=== PATIENT | female | born 1960 | race Caucasian/White ===

== ENCOUNTER 2017-03-20 14:44 | Inpatient (IN) | payer OTHER ==
[~2017-03-20] VITALS: Ht 157.5 cm; Wt 74.4 kg
[2017-03-20 17:39] VITALS: Ht 157.5 cm; Wt 74.4 kg
[2017-03-20 18:22] VITALS: BP 129/73; PULSE 74; RESP 18
--- NOTE | 2017-03-20 19:47 | HP ---
Date/Time of Note Date/Time of Note DATE: 03/20/17 TIME: 19:40 Assessment/Plan VTE Prophylaxis VTE Prophylaxis Intervention: SCD's Lines/Catheters IV Catheter Type (from Nrsg): Saline Lock Assessment/Plan Assessment/Plan 56 yo F with no known pmhx presents with 2 days of L back pain radiating to L leg, clinical history consistent with sciatica. Given no evidence of spinal cord compromise (no c/o bowel or bladder control), no risk factors for epidural abscess (no fever, no h/o IVDU), no h/o malignancy no compelling indication for more advanced imaging at this time. PLAN pain control with NSAIDs/APAP/opiates PT as tolerated if pain does not improve by AM or worsens, consider MRI general diet DVT prophx with LMWH and SCDs HPI/ROS Admit Date/Time Admit Date/Time Mar 20, 2017 at 17:22 Hx of Present Illness 56 yo F with no known pmhx transferred from OSH ER for insurance reasons. Pt had presented to [facility] ER this afternoon with L sided back pain with radiation down her L left leg. Pt states pain began 2 days ago while pt was standing in her kitchen cooking. Over this interval pain has consistently worsened which is what led pt to come to the ED this afternoon. Despite several doses of morphine she was unable to WB thus she is being admitted for further management. Pt denies any fever, chills, weight changes, compromise of bowel or bladder control. +tingling in LLE PMH/Family/Social Past Medical History PMHx: none PSHx: unk procedure to R arm Meds none all none ROS 10p ROS neg except as per HPI Fam Hx: non contributory Social History Smoking Status: Never smoker Exam/Review of Systems Vital Signs Vitals Vital Signs Date Time Temp Pulse Resp B/P Pulse Ox O2 Delivery O2 Flow Rate FiO2 03/20/17 18:22 98.2 74 18 129/73 96 Room Air Exam Exam middle aged female laying in bed, pleasant EOMI mmm no mrg lungs clear abd soft no le edema no rashes 4/5 strength L sided ankle flexion/extension. Unable to assess proximal strength (knee/hip) 2/2 pain with flexing L hip 5/5 strength R ankle decreased sensation to light touch on LLE from toes to knee Procedures Procedures LSpine XR done at OSH with LACHOD, no fracture or mass TADEO AMAYA MD Mar 20, 2017 19:46
[2017-03-20] MEDS ORDERED: MAGNESIUM HYDROXIDE 30ML CUP PO PRN (20:00)
[2017-03-20] MEDS ORDERED: DOCUSATE SODIUM 100 MG CAP PO PRN (20:00)
[2017-03-20] MEDS ORDERED: HYDROCODONE/APAP (5/325) TAB PO PRN (20:00)
[2017-03-20] MEDS ORDERED: KETOROLAC 30 MG INJ IV PRN (20:00)
[2017-03-20] MEDS ORDERED: NACL 0.9% 3 ML SYG IV SCH (20:00)
[2017-03-20] MEDS ORDERED: ONDANSETRON 4 MG INJ IV PRN (20:00)
[2017-03-20] MEDS ORDERED: ONDANSETRON 4 MG TAB PO PRN (20:00)
[2017-03-20] MEDS ORDERED: ACETAMINOPHEN 325 MG TAB PO PRN (20:00)
[2017-03-20] MEDS ORDERED: NA PHOSPHATE/BIPHOS 133 ML ENEMA PR PRN (20:00)
[2017-03-20] MEDS ORDERED: BISACODYL 10 MG SUPP PR PRN (20:00)
[2017-03-20] MEDS ORDERED: BISACODYL (EC) 5 MG TAB PO PRN (20:00)
[2017-03-20] MEDS: morphine 2 MG INJ IV PRN (21:11)
[2017-03-20 22:07] VITALS: BP 102/56; RESP 16
[2017-03-21] MEDS: morphine 2 MG INJ IV PRN ×3 (03:06→13:18)
[2017-03-21 07:45] VITALS: BP 111/58; RESP 18
[2017-03-21] MEDS: ENOXAPARIN 40 MG/0.4 ML SYG SC SCH (10:17)
--- NOTE | 2017-03-21 15:30 | PN ---
Date/Time of Note Date/Time of Note DATE: 03/21/17 TIME: 15:28 Assessment/Plan VTE Prophylaxis VTE Prophylaxis Intervention: SCD's Lines/Catheters IV Catheter Type (from Nrsg): Saline Lock Assessment/Plan Assessment/Plan 1. acute intractable back pain radiating to her Buttocks 2. Rule out spinal canal stenosis Plan: MRI LS spine pain control PT evaluation and treatment SCD for DVT prophylaxis Subjective 24 Hr Interval Summary Free Text/Dictation c/o severe back pain, BP stable Exam/Review of Systems Vital Signs Vitals Vital Signs Date Time Temp Pulse Resp B/P Pulse Ox O2 Delivery O2 Flow Rate FiO2 03/21/17 07:45 98.6 65 18 111/58 96 03/20/17 18:22 Room Air Intake and Output 03/20/17 03/20/17 03/21/17 15:00 23:00 07:00 Intake Total 200 ml Balance 200 ml Exam middle aged female laying in bed, pleasant EOMI mmm no mrg lungs clear abd soft no le edema no rashes 4/5 strength L sided ankle flexion/extension. Unable to assess proximal strength (knee/hip) 2/2 pain with flexing L hip 5/5 strength R ankle decreased sensation to light touch on LLE from toes to knee Medications Medications Current Medications Ondansetron HCl (Zofran Tab) 4 mg Q6H PRN PO NAUSEA AND/OR VOMITING; Start 03/20 at 20:00 Acetaminophen (Tylenol Tab) 650 mg Q6H PRN PO PAIN LEVEL 1-3 OR FEVER; Start at 20:00 Morphine Sulfate (morphine) 2 mg Q4H PRN IV SEVERE PAIN LEVEL 7-10 Last administered on 03/21/17t 13:18; Admin Dose 2 MG; Start 03/20/17 at 20:00 Docusate Sodium (Colace) 100 mg Q12H PRN PO CONSTIPATION; Start 03/20/17 at 20: 00 Magnesium Hydroxide (Milk Of Mag) 30 ml DAILY PRN PO CONSTIPATION; Start at 20:00 Bisacodyl (Dulcolax) 5 mg DAILY PRN PO CONSTIPATION; Start 03/20/17 at 20:00 Bisacodyl (Dulcolax Supp) 10 mg DAILY PRN [place] CONSTIPATION; Start 03/20/17 at 20: 00 Sodium Biphosphate/ Sodium Phosphate (Fleet Enema) 133 ml DAILY PRN [place] CONSTIPATION; Start 03/20/17 at 20:00 Enoxaparin Sodium (Lovenox) 40 mg DAILY SC Last administered on 03/21/17t 10:17 ; Admin Dose 40 MG; Start 03/21/17 at 09:00 Ketorolac Tromethamine (Toradol) 30 mg Q6H PRN IV PAIN; Start 03/20/17 at 21:30 ; Stop 03/23/17 at 21:29 Acetaminophen/ Hydrocodone Bitart ([place] (5/325)) 1 tab Q4H PRN PO MODERATE PAIN LEVEL 4-6; Start 03/21/17 at 18:00 WOJCIECH CABA MD Mar 21, 2017 15:30
[2017-03-21] MEDS: HYDROCODONE/APAP (5/325) TAB PO PRN ×2 (17:26→21:49)
[2017-03-21 21:23] VITALS: BP 125/70; RESP 20
[2017-03-22] MEDS: HYDROCODONE/APAP (5/325) TAB PO PRN ×2 (01:50→19:51)
[2017-03-22] MEDS: KETOROLAC 30 MG INJ IV PRN (05:42)
[2017-03-22 07:53] VITALS: BP 129/59; RESP 16
[2017-03-22] MEDS: morphine 2 MG INJ IV PRN ×3 (09:41→23:46)
[2017-03-22] MEDS: ENOXAPARIN 40 MG/0.4 ML SYG SC SCH (09:54)
--- NOTE | 2017-03-22 15:06 | PN ---
Date/Time of Note Date/Time of Note DATE: 03/22/17 TIME: 15:03 Assessment/Plan VTE Prophylaxis VTE Prophylaxis Intervention: SCD's Lines/Catheters IV Catheter Type (from Nrsg): Saline Lock Assessment/Plan Assessment/Plan 1. acute intractable back pain radiating to her Buttocks 2. Rule out spinal canal stenosis vs acute spina findings Plan: MRI LS spine just done, awaiting for result pain control PT evaluation and treatment SCD for DVT prophylaxis Subjective 24 Hr Interval Summary Free Text/Dictation c/o intractable back pain, plan for MRI today Exam/Review of Systems Vital Signs Vitals Vital Signs Date Time Temp Pulse Resp B/P Pulse Ox O2 Delivery O2 Flow Rate FiO2 03/22/17 07:53 97.3 60 16 129/59 98 03/20/17 18:22 Room Air Intake and Output 03/21/17 03/21/17 03/22/17 15:00 23:00 07:00 Intake Total 960 ml 720 ml Balance 960 ml 720 ml Exam Constitutional: alert Head: normocephalic Neck: supple Respiratory: clear to auscultation Cardiovascular: regular rate and rhythm Gastrointestinal: soft Extremities: normal pulses Neurological: SOFTWARE DEVELOPMENT ENGINEER II-XII intact Medications Medications Current Medications Ondansetron HCl (Zofran Tab) 4 mg Q6H PRN PO NAUSEA AND/OR VOMITING; Start 03/20 at 20:00 Acetaminophen (Tylenol Tab) 650 mg Q6H PRN PO PAIN LEVEL 1-3 OR FEVER; Start at 20:00 Morphine Sulfate (morphine) 2 mg Q4H PRN IV SEVERE PAIN LEVEL 7-10 Last administered on 03/22/17t 09:41; Admin Dose 2 MG; Start 03/20/17 at 20:00 Docusate Sodium (Colace) 100 mg Q12H PRN PO CONSTIPATION; Start 03/20/17 at 20: 00 Magnesium Hydroxide (Milk Of Mag) 30 ml DAILY PRN PO CONSTIPATION; Start at 20:00 Bisacodyl (Dulcolax) 5 mg DAILY PRN PO CONSTIPATION; Start 03/20/17 at 20:00 Bisacodyl (Dulcolax Supp) 10 mg DAILY PRN [place] CONSTIPATION; Start 03/20/17 at 20: 00 Sodium Biphosphate/ Sodium Phosphate (Fleet Enema) 133 ml DAILY PRN [place] CONSTIPATION; Start 03/20/17 at 20:00 Enoxaparin Sodium (Lovenox) 40 mg DAILY SC Last administered on 03/22/17 09:54 ; Admin Dose 40 MG; Start 03/21/17 at 09:00 Ketorolac Tromethamine (Toradol) 30 mg Q6H PRN IV PAIN Last administered on 03/22 05:42; Admin Dose 30 MG; Start 03/20/17 at 21:30; Stop 03/23/17 at 21:29 Acetaminophen/ Hydrocodone Bitart ([place] (5/325)) 1 tab Q4H PRN PO MODERATE PAIN LEVEL 4-6 Last administered on 03/22/17 01:50; Admin Dose 1 TAB; Start 03/21 at 18:00 WOJCIECH CABA MD Mar 22, 2017 15:06
--- NOTE | 2017-03-22 16:16 | RADRPT ---
PROCEDURE: MRI lumbar spine without contrast CLINICAL INDICATION: Back pain TECHNIQUE: An high-resolution MRI of the lumbar spine was performed utilizing the following sequen parker: Sagittal and axial T1 weighted, sagittal and axial T2 weighted, and sagittal fat suppressed T2 . COMPARISON: None FINDINGS: No acute vertebral compression fracture. No evidence of a diffuse marrow replacing process. The conus medullaris terminates at L1-2. T12 - L1: The disk is preserved in height. There is no significant disk protrusion, spinal canal or foraminal stenosis. L1 - L2: The disk is preserved in height. There is no significant disk protrusion, spinal canal or foraminal stenosis. L2 - L3: The disk is preserved in height. There is no significant disk protrusion, spinal canal or foraminal stenosis. L3 - L4: The disk is preserved in height. There is no significant disk protrusion, spinal canal or foraminal stenosis. L4 - L5: The disk is preserved in height. Left foraminal to far left lateral disk annular fissure . No spinal canal or foraminal narrowing. L5 - S1: Grade 1 retrolisthesis. Mild to moderate disk height loss. Circumferential disk bulge wit h central 2 mm disk protrusion and disk annular fissure. No spinal canal stenosis. Mild to moderat e right and mild left foraminal narrowing. Paraspinal soft tissues are unremarkable. IMPRESSION: L5 - S1: Grade 1 retrolisthesis with moderate discogenic disease. Circumferential disk bulge with central 2 mm disk protrusion and disk annular fissure. Mild to moderate right and mild left forami nal narrowing. L4 - L5: Left foraminal to far left lateral disk annular fissure. No significant lumbar spinal canal stenosis. RPTAT: AA .Preston Smith MD, MD Date Time Electronically viewed and signed by .Preston Smith MD, on 03/22/2017 16:16 .T/
[2017-03-22 23:06] VITALS: BP 133/77; RESP 20
[2017-03-23] MEDS: HYDROCODONE/APAP (5/325) TAB PO PRN ×2 (03:06→10:27)
[2017-03-23 05:58] LABS: ADD SCAN DIFF NO
[2017-03-23 06:06] LABS: BASOPHILS % 0.6 % (0.0-2.0); EOSINOPHILS # 0.2 10^3/ul (0.0-0.5); EOSINOPHILS % 2.9 % (0.0-7.0); HEMATOCRIT 40.1 % (37.0-47.0); HEMOGLOBIN 13.2 g/dl (12.0-16.0); LYMPHOCYTES # 1.2 10^3/ul (0.8-2.9); LYMPHOCYTES % 23.2 % (15.0-51.0); MEAN CORPUSCULAR HEMOGLOBIN 28.6 pg (29.0-33.0); MEAN CORPUSCULAR HGB CONC 32.9 g/dl (32.0-37.0); MEAN CORPUSCULAR VOLUME 86.8 fl (82.0-101.0); MEAN PLATELET VOLUME 10.9 fl (7.4-10.4); MONOCYTE # 0.7 10^3/ul (0.3-0.9); MONOCYTES % 13.2 % (0.0-11.0); NEUTROPHIL # 3.1 10^3/ul (1.6-7.5); NEUTROPHILS % 59.3 % (39.0-77.0); PLATELET COUNT 182 10^3/UL (140-415); RED BLOOD COUNT 4.62 10^6/ul (4.20-5.40); RED CELL DISTRIBUTION WIDTH 12.2 % (11.5-14.5); WHITE BLOOD COUNT 5.2 10^3/ul (4.8-10.8)
[2017-03-23 06:37] LABS: INR 1.08; PT RATIO 1.1
[2017-03-23 06:39] LABS: PARTIAL THROMBOPLASTIN TIME 27.3 Sec (25.0-35.0)
[2017-03-23 06:40] LABS: CALCIUM 9.4 mg/dl (8.4-10.2); CREATININE 0.65 mg/dl (0.44-1.00); POTASSIUM 4.4 mmol/L (3.5-5.1)
[2017-03-23 08:10] VITALS: BP 118/76; RESP 18
[2017-03-23] MEDS: morphine 2 MG INJ IV PRN (08:18)
[2017-03-23] MEDS: ENOXAPARIN 40 MG/0.4 ML SYG SC SCH (08:18)
[2017-03-23] MEDS: KETOROLAC 30 MG INJ IV PRN (10:59)
[2017-03-23] MEDS ORDERED: METHYLPREDNISOLONE (MEDROL) DOSE PACK PO SCH (11:30)
--- NOTE | 2017-03-23 11:38 | PN ---
Date/Time of Note Date/Time of Note DATE: 03/23/17 TIME: 11:35 Assessment/Plan VTE Prophylaxis VTE Prophylaxis Intervention: LMWH Lines/Catheters IV Catheter Type (from [facility]): Saline Lock Urinary Cath still in place: No Assessment/Plan Chief Complaint/Hosp Course S-moderate burning poking pain left ankle/calf/thigh. Back? No fever chills weight loss or general health decline or loss of sensation. In terms of her rash, and denies any bug bites or activity in her garden/poison sheila exposure. O-vss PE No pallor Regular Clear Bowel sounds positive, nontender, nondistended, no RIG Reflexes symmetrical bilaterally SLR appears greater than 45 bilaterally -Slight papular rash left ankle thigh but no weeping or vesicles today A/P 1. Left leg pain. Sciatica radiculopathy. Stable continue Medrol nonsteroidals PT. Outpatient neurosurgery follow-up. 2. Left rash: Consider shingles? 3. Deconditioning may discharge home later. Problems: Exam/Review of Systems Vital Signs Vitals Vital Signs Date Time Temp Pulse Resp B/P Pulse Ox O2 Delivery O2 Flow Rate FiO2 03/23/17 08:10 98.2 69 18 118/76 97 03/20/17 18:22 Room Air Intake and Output 03/22/17 03/22/17 03/23/17 15:00 23:00 07:00 Intake Total 1130 ml 400 ml Balance 1130 ml 400 ml Results Result Diagram: 03/23/17 0515 03/23/17 0515 Results 24 hrs Laboratory Tests Test 03/23/17 05:15 White Blood Count 5.2 Red Blood Count 4.62 Hemoglobin 13.2 Hematocrit 40.1 Mean Corpuscular Volume 86.8 Mean Corpuscular Hemoglobin 28.6 L Mean Corpuscular Hemoglobin Concent 32.9 Red Cell Distribution Width 12.2 Platelet Count 182 Mean Platelet Volume 10.9 H Neutrophils % 59.3 Lymphocytes % 23.2 Monocytes % 13.2 H Eosinophils % 2.9 Basophils % 0.6 Nucleated Red Blood Cells % 0.0 Neutrophils # 3.1 Lymphocytes # 1.2 Monocytes # 0.7 Eosinophils # 0.2 Basophils # 0.0 Nucleated Red Blood Cells # 0.0 Prothrombin Time 14.0 Prothrombin Time Ratio 1.1 INR International Normalized Ratio 1.08 Activated Partial Thromboplast Time 27.3 Sodium Level 142 Potassium Level 4.4 Chloride Level 104 Carbon Dioxide Level 29 Anion Gap 13 Blood Urea Nitrogen 14 Creatinine 0.65 Glucose Level 91 Calcium Level 9.4 Medications Medications Current Medications Ondansetron HCl (Zofran Tab) 4 mg Q6H PRN PO NAUSEA AND/OR VOMITING; Start 03/20 at 20:00 Acetaminophen (Tylenol Tab) 650 mg Q6H PRN PO PAIN LEVEL 1-3 OR FEVER; Start at 20:00 Morphine Sulfate (morphine) 2 mg Q4H PRN IV SEVERE PAIN LEVEL 7-10 Last administered on 03/23/17 08:18; Admin Dose 2 MG; Start 03/20/17 at 20:00 Docusate Sodium (Colace) 100 mg Q12H PRN PO CONSTIPATION; Start 03/20/17 at 20: 00 Magnesium Hydroxide (Milk Of Mag) 30 ml DAILY PRN PO CONSTIPATION; Start at 20:00 Bisacodyl (Dulcolax) 5 mg DAILY PRN PO CONSTIPATION; Start 03/20/17 at 20:00 Bisacodyl (Dulcolax Supp) 10 mg DAILY PRN [place] CONSTIPATION; Start 03/20/17 at 20: 00 Sodium Biphosphate/ Sodium Phosphate (Fleet Enema) 133 ml DAILY PRN [place] CONSTIPATION; Start 03/20/17 at 20:00 Enoxaparin Sodium (Lovenox) 40 mg DAILY SC Last administered on 03/23/17 08:18 ; Admin Dose 40 MG; Start 03/21/17 at 09:00 Ketorolac Tromethamine (Toradol) 30 mg Q6H PRN IV PAIN Last administered on 03/23 10:59; Admin Dose 30 MG; Start 03/20/17 at 21:30; Stop 03/23/17 at 21:29 Acetaminophen/ Hydrocodone Bitart ([place] (5/325)) 1 tab Q4H PRN PO MODERATE PAIN LEVEL 4-6 Last administered on 03/23/17 10:27; Admin Dose 1 TAB; Start 03/21 at 18:00 GLORIA EVANS MD Mar 23, 2017 11:38
--- NOTE | 2017-03-23 11:58 | PDOCDIS ---
Discharge Instructions DIAGNOSIS Discharge Diagnosis: Lumbar radiculopathy CONDITION Patient Condition: Good HOME CARE INSTRUCTIONS: Special Diet: 1800 louis ACTIVITY: Activity Restrictions: Slowly Increase Activity Avoid heavy lifting FOLLOW UP/APPOINTMENTS Appointments Appointment primary 1 week. Referral to contracted neurosurgery, or Dr. Alo Figueroa for 1 month. Continue outpatient physical therapy. GLORIA EVANS MD Mar 23, 2017 11:58
[2017-03-23] MEDS ORDERED: METHYLPREDNISOLONE 4 MG TAB PO SCH (12:00)
[2017-03-23] MEDS ORDERED: ACET325T40 PO (12:01)
[2017-03-23] MEDS ORDERED: DOCU-216 PO (12:01)
[2017-03-23] MEDS ORDERED: IBUP800T25 PO (12:01)
[2017-03-23] MEDS ORDERED: Methylprednisolone Dose Pack PO (12:01)
--- NOTE | 2017-03-23 18:07 | CONS ---
DATE OF ADMISSION: 03/20/2017 DATE OF CONSULTATION: 03/23/2017 TYPE OF CONSULTATION: Infectious disease. REASON FOR CONSULTATION: Antibiotic management. HISTORY OF PRESENT ILLNESS: Joya Suarez is a 56-year-old female with no known pa st medical history who comes in with 2 days of low back pain radiating to the left leg consistent wi th sciatica. She had left-sided back pain with radiation down her left leg that began 2 days prior to admission while she was cooking. PAST MEDICAL HISTORY: Unremarkable. She now developed a few pustules on the left lower extremity a nd for that reason, I was called. PAST MEDICAL HISTORY: Operations as outlined. FAMILY HISTORY: Noncontributory. SOCIAL HISTORY: She does not smoke, drink or abuse drugs. ALLERGIES: NONE TO PENICILLIN, SULFA OR FOODS. MEDICATIONS: Per chart. REVIEW OF SYSTEMS: Noncontributory. PHYSICAL EXAMINATION: GENERAL: The patient is a well-developed, well-nourished middle-aged female who is lying in bed in no acute distress. VITAL SIGNS: Stable. She is afebrile. SKIN: Without generalized rash. HEENT: Within normal limits. NECK: Supple. LYMPH NODES: None palpable. CHEST: Decreased breath sounds at the bases. HEART: Without murmur or gallop. ABDOMEN: Soft, nontender, without organosplenomegaly or masses. EXTREMITIES: She has a few pustules on the medial aspect of her instep and also on the medial aspec t of her ankle. RECTAL AND GENITAL: Deferred. NEUROLOGIC: No focal neurological abnormalities. Her MRI scan did not show any significant finding s. She had mild to moderate left foraminal narrowing. LABORATORIES: Her white count was 5.21 today, H and H 13.2 and 40.1, platelet count 182,000. BUN a nd creatinine 14/0.65. She is on methylprednisolone, which seemed to have helped. The pustules may be MRSA or they may be contacts since she has been wearing constrictors to prevent deep vein thromb ophlebitis. I am going to get an MRSA for her nares. Recommend pHisoHex washes to the area. As no ulises, it is very limited and I do not want to start antibiotics at this point unless there is reason. PLAN: We get an MRI face screen. She can go home and followup with her physician. I will dictate my findings to Dr. Cristina and Dr. Regan Bingham. Dictated By: ZULMA POST MD, JD/SOHAM Conf#: [id number] DID#: [id number]
[2017-03-23] MEDS ORDERED: DOCUSATE SODIUM 100 MG CAP PO SCH (21:00)
[2017-03-23] MEDS ORDERED: IBUPROFEN 800 MG TAB PO PRN (21:00)
--- NOTE | 2017-03-24 07:24 | DS ---
DATE OF ADMISSION: 03/20/2017 DATE OF DISCHARGE: 03/23/2017 DATE OF : 1960 PRIMARY CARE PHYSICIAN: None. CLOTH SHEARER: Michael Post MD DIAGNOSES ON ADMISSION: Lumbar radiculopathy, sciatica. DIAGNOSES ON DISCHARGE: 1. Lumbar radiculopathy. 2. Sciatica. 3. Left lower extremity rash. HOSPITAL COURSE: A 56-year-old female who presents with burning left lower extremity pain at the an kle, calf and thigh. Sharp, may be burning in nature. No known aggravating or relieving factors. She denies any recent injury. Denies any falls, fevers, weight loss. No comorbidities. 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 No right-sided discomfort. No strength loss or falls. The patient w ithout any warning signs is being treated for acute back strain, lumbar radiculopathy, sciatica. Lilly burger is presently stable and fit for discharge on conservative management, which includes Motrin, Medro l and gallbladder care, outpatient PT. She this fail, patient may require muscle relaxants or [place] . The patient may need to follow up with neurosurgery, ____ epidurals if the 2nd one fails as well. The patient and her family were aware of risk of recurrences and potential for further therapy zaida n the line due to relapses. DISCHARGE PLAN: Home. Follow up with primary in 1 week. ____ appointment with neurosurgery in 3 to 4 weeks. Outpatient physical therapy. DIET: Regular. ACTIVITY: As tolerated. No heavy lifting. DURABLE MEDICAL EQUIPMENT: None. CODE STATUS: FULL. CONDITION: Stable. BARRIERS TO DISCHARGE: None. PENDING TESTS: None. FUNCTIONAL STATUS: The patient is awake, alert agrees to the plan of care, interpreted with the [facility]. ALLERGIES: NO KNOWN DRUG ALLERGIES. REASON FOR ADMISSION: Back and leg pain. The patient was noted to have a rash on her left leg, both lateral and medial side, papular erythema tous potentially noted in her calf as well. ____working in her backyard. I will have roxi ferro render their opinion as well. It is not typically shingles related, but I would ask for their opinion. If needed, we will place the patient on acyclovir. MEDICATIONS: NEW: Tylenol as needed, Motrin 800 every 6 hours as needed, Medrol Dosepak to finish course, Colace 100 daily. Acyclovir if recommended by ID. Dictated By: GLORIA MURPHY/NTS Conf#: [id number] DID#: [id number] CC: MICHAEL POST MD;*EndCC*
[2017-03-24] MEDS ORDERED: METHYLPREDNISOLONE 4 MG TAB PO SCH ×4 (07:30→21:00)
[2017-03-25] MEDS ORDERED: METHYLPREDNISOLONE 4 MG TAB PO SCH (21:00)
== END 2017-03-23 17:39 | disposition home or self-care (01) | DRG 552 ==
LOC: PP2 17:22
PROVIDERS: ADMIT Family Medicine; ATTEND Family Medicine
DX: M54.42 Lumbago with sciatica, left side (principal); M54.16 Radiculopathy, lumbar region; R21 Rash and other nonspecific skin eruption
CPT/HCPCS: 72148; 80048; 85025; 85610; 85730; 87081; J1650; J1885; J2270; J7509

== ENCOUNTER 2017-03-26 14:46 | Outpatient (CLI) | payer OTHER ==
[~2017-03-26] VITALS: Ht 157.5 cm; Wt 70.5 kg
[~2017-03-26 14:46] MED LIST: ACET325T40 PO; DOCU-216 PO; IBUP800T25 PO; Methylprednisolone Dose Pack PO
[2017-03-26 14:54] VITALS: BP 133/78; PULSE 74; RESP 18; Ht 157.5 cm; Wt 70.5 kg
--- NOTE | 2017-03-26 16:29 | PN ---
Date/Time of Note Date/Time of Note DATE: 03/26/17 TIME: 16:23 Outpatient Progress Note Chief Complaint Rash/left leg pain/back pain HPI Rash/acute onset, few days duration, left leg, painful, pain score 7 8 out of 10 , no change in medication, rashes on left foot and calf area, outer side, Neck pain/patient has severe leg pain, pain moderately severe, patient was taking Motrin without much relief, Back pain/patient has also slight back discomfort, no tingling on numbness, no loss of bladder or bowel control, Review of Systems Const: No Fever, no chills, no Wt. loss, no Fatigue, normal appetite, no diaphoresis. Eyes: No pain, no discharge, no redness, no visual change, no foreign body. ENT: No pain, no bleeding, no congestion, no sore throat, no dysphagia, no discharge or rhinitis. Lymph: No adenopathy, no tender nodes, no lymphedema. Resp: No SOB, no cough, no sputum, no wheezing, no chest pain. CV: No chest pain, no palpitaions, no DUNNE, no PND, no edema. GI: Normal appetite, no pain, no nausea, no vomiting, no diarrhea, no blood, no constipation. : No frequency, no urgency, no dysuria, no hematuria, no flank pain, no discharge, no bleeding. Musc: No bone/joint pain, no back pain, no neck pain, no knee pain, no restricted ROM. Skin: Left leg rash painful, getting worse, for last few days, patient was on antibiotic, without much relief,, no skin lesions, no erythema, no laceration, no bruising, no pruritus. Neuro: No QUINTANA, no dizziness, no syncope, no seizure, no focal-weakness. Endo: No polyuria, no polydypsia, no dry-skin, no temp-intolerance. Psych: No hallucinations, no depression, no anxiety, no suicidal ideation. Ext: No edema, left leg pain, no ulcer, no weakness left leg rash,. Physical Exam Vital Signs Date Time Temp Pulse Resp B/P Pulse Ox O2 Delivery O2 Flow Rate FiO2 03/26/17 14:54 98.0 74 18 133/78 Room Air General Appearance: A 56 year-old female who appears well-developed, well- nourished, in no acute distress. HEENT: Head normocephalic, atraumatic. Pupils equal, round, reactive to light and accommodate. Sclerae are no jaundice. Nasal turbinates pink without erythema or nasal discharge. Mucous membranes pink and moist without lesions. Oropharynx clear without any exudate or discharge. NECK: Supple. Trachea midline, No thyromegaly, No cervical lymphadenopathy, No mass, No carotid bruits, No JVD, Carotid pulses 2+ bilaterally. PULMONARY: Clear to auscultaion bilaterally, No retractions, Chest expansion symmetric bilaterally, no rales, no ronchi, no dulness on percussion. CARDIAC: Normal SI and S2, Regular rate and rythm, no murmur, gallop, or rub. GASTROINTESTINAL: Abdomen is soft, non-tender, Non Rigid, No distention, Positive bowel sounds x4 quadrants, Liver normal. SKIN: Warm, dry, n left leg and foot rash following the dermatome, and rash in clusters, few different areas,, no bruise, no echmosis patient has left leg and left foot rash, in cluster, typical of herpes zoster, painful, following the pattern, and dermatome,. EXTREMITIES: Bilateral lower extremities no edema, no phlabitus, pulse palpable , no contracture. MUSCULOSKELETAL: Spine Normal, Non-tender, Normal range of motion, No swelling, no deformity, no clubbing, or cyanosis, the patient has no edema to bilateral lower extremities, dorsalis pedis pulses palpable bilaterally. NEUROLOGIC: The patient is awake, alert, oriented, responding to yes/no questions appropriately, moving all extremities, cranial nerve intact, normal strenght, normal power, normal coordination, normal gait. Allergies Coded Allergies: No Known Allergy (Unverified , 03/20/17) PMH Back pain Social Hx No smoking no drinking, Family Hx Noncontributory Assessment/Plan Impression Rash/back pain/left leg pain/ Shingles Plan/ Patient has rash in the left leg and foot, follows the dermatome, and typical of herpes zoster rash, painful, no infection, Will start on Zovirax 800 mg 5 tablets a day for 7 days, [place] 5/325 p.o. 4 times daily #30 as needed for pain, Patient encouraged to follow with the primary care physician, Medications Home Meds Active Scripts [Methylprednisolone Dose Pack] 1 EA EACH No Conflict Check, 0 EA PO .STD DOSE PACK Hospital may provide full supply/Dosepak Prov:GLORIA EVANS MD 03/23/17 Docusate Sodium (Dok) 100 Mg Capsule, 100 MG PO HS for 7 Days, CAP 3 Refills Prov:GLORIA EVANS MD 03/23/17 Ibuprofen* (Ibuprofen*) 800 Mg Tablet, 800 MG PO Q6H Y for MODERATE PAIN LEVEL 4 -6 for 10 Days, #30 TAB 2 Refills Prov:GLORIA EVANS MD 03/23/17 Acetaminophen (MAPAP) 325 Mg Tablet, 650 MG PO Q6H Y for PAIN LEVEL 1-3 OR FEVER for 1 Day, TAB Prov:GLORIA EVANS MD 03/23/17 BRI CAAB MD Mar 26, 2017 16:29
== END 2017-03-26 16:30 | disposition home or self-care (01) ==
LOC: DCC 14:46
PROVIDERS: ATTEND Internal Medicine
DX: M79.662 Pain in left lower leg (principal); M54.9 Dorsalgia, unspecified

== ENCOUNTER 2017-04-06 10:48 | Outpatient (CLI) | payer OTHER ==
[~2017-04-06] VITALS: Ht 157.5 cm; Wt 70.9 kg
[2017-04-06 11:28] VITALS: BP 125/70; PULSE 69; RESP 18; Ht 157.5 cm; Wt 70.9 kg
--- NOTE | 2017-04-06 11:50 | PN ---
Date/Time of Note Date/Time of Note DATE: 04/06/17 TIME: 11:46 Outpatient Progress Note Chief Complaint Zoster/back pain HPI Zoster/patient has rash on the left leg, dried up, patient was prescribed Zovirax, patient has completed the course, patient had extension of the rash, but slightly better and right now, Back pain/patient has back pain, which has improved significantly, no tingling no numbness, no loss of bladder or bowel control, Review of Systems Const: No Fever, no chills, no Wt. loss, no Fatigue, normal appetite, no diaphoresis. Eyes: No pain, no discharge, no redness, no visual change, no foreign body. ENT: No pain, no bleeding, no congestion, no sore throat, no dysphagia, no discharge or rhinitis. Lymph: No adenopathy, no tender nodes, no lymphedema. Resp: No SOB, no cough, no sputum, no wheezing, no chest pain. CV: No chest pain, no palpitaions, no DUNNE, no PND, no edema. GI: Normal appetite, no pain, no nausea, no vomiting, no diarrhea, no blood, no constipation. : No frequency, no urgency, no dysuria, no hematuria, no flank pain, no discharge, no bleeding. Musc: Slight no back pain, no neck pain, no knee pain, no restricted ROM. Skin: No left leg rash typical of zoster, dried up now,, no ecchymosis, no laceration, no bruises, Psych: No hallucinations, no depression, no anxiety, no suicidal ideation. Ext: No edema, left leg pain,, no ulcer, no weakness no ulcer, rash dried up, Physical Exam General Appearance: A 56 year-old female who appears well-developed, well- nourished, in no acute distress. HEENT: Head normocephalic, atraumatic. Pupils equal, round, reactive to light and accommodate. Sclerae are no jaundice. Nasal turbinates pink without erythema or nasal discharge. Mucous membranes pink and moist without lesions. Oropharynx clear without any exudate or discharge. NECK: Supple. Trachea midline, No thyromegaly, No cervical lymphadenopathy, No mass, No carotid bruits, No JVD, Carotid pulses 2+ bilaterally. PULMONARY: Clear to auscultaion bilaterally, No retractions, Chest expansion symmetric bilaterally, no rales, no ronchi, no dulness on percussion. CARDIAC: Normal SI and S2, Regular rate and rythm, no murmur, gallop, or rub. GASTROINTESTINAL: Abdomen is soft, non-tender, Non Rigid, No distention, Positive bowel sounds x4 quadrants, Liver normal. SKIN: Warm, dry, left leg rash, typical of zoster, dried up, rash extended from lateral side of the leg to the sole of the foot, also dried up, no bruise, no echmosis. EXTREMITIES: Bilateral lower extremities no edema, no phlabitus, pulse palpable , no contracture. Left leg zoster rash dried up, MUSCULOSKELETAL: Spine Normal, Non-tender, Normal range of motion, No swelling, no deformity, no clubbing, or cyanosis, the patient has no edema to bilateral lower extremities, dorsalis pedis pulses palpable bilaterally. NEUROLOGIC: The patient is awake, alert, oriented, responding to yes/no questions appropriately, moving all extremities, cranial nerve intact, normal strenght, normal power, normal coordination, normal gait. Allergies Coded Allergies: No Known Allergy (Unverified , 03/20/17) PMH No change Social Hx No change Family Hx No change Assessment/Plan Impression Zoster/back pain improved Plan Patient has completed course of Zovirax, patient did very well, no cellulitis, no infection, patient has dried up rash, Patient pain is moderately severe, will start [place] 5/325 3 times daily #50 Encouraged to follow with the primary physician, further workup to be done by primary care physician, Medications Home Meds Active Scripts Docusate Sodium (Dok) 100 Mg Capsule, 100 MG PO HS for 7 Days, CAP 3 Refills Prov:GLORIA EVANS MD 03/23/17 Ibuprofen* (Ibuprofen*) 800 Mg Tablet, 800 MG PO Q6H Y for MODERATE PAIN LEVEL 4 -6 for 10 Days, #30 TAB 2 Refills Prov:GLORIA EVANS MD 03/23/17 Acetaminophen (MAPAP) 325 Mg Tablet, 650 MG PO Q6H Y for PAIN LEVEL 1-3 OR FEVER for 1 Day, TAB Prov:GLORIA EVANS MD 03/23/17 Discontinued Scripts [Methylprednisolone Dose Pack] 1 EA EACH No Conflict Check, 0 EA PO .STD DOSE PACK Hospital may provide full supply/Dosepak Prov:GLORIA EVANS MD 03/23/17 BRI CABA MD Apr 06, 2017 11:50
== END 2017-04-06 16:22 | disposition home or self-care (01) ==
LOC: DCC 10:48
PROVIDERS: ATTEND Internal Medicine
DX: M54.9 Dorsalgia, unspecified (principal); B02.9 Zoster without complications

== ENCOUNTER 2018-05-11 21:05 | Inpatient (IN) | END 2018-05-13 16:40 | disposition home health service (06) | DRG 69 ==

== ENCOUNTER 2018-12-31 12:21 | Emergency (ER) | payer OTHER ==
[~2018-12-31] VITALS: Ht 160 cm; Wt 60.0 kg
[~2018-12-31 12:21] MED LIST changes: +ASPI-831 PO; +CALC1TAB93 PO; -DOCU-216 PO; +HYDR-4011 PO; +IBUP-1544 PO; -IBUP800T25 PO; -Methylprednisolone Dose Pack PO
[2018-12-31 12:33] VITALS: Ht 160 cm; Wt 60.0 kg
[2018-12-31] MEDS ORDERED: ASPIRIN 325 MG TAB PO ONE (13:30)
[2018-12-31] MEDS ORDERED: OLANZAPINE (ODT) 5 MG TAB ODT ONE (13:30)
[2018-12-31] MEDS ORDERED: ATOR40TA68 PO (13:35)
[2018-12-31] MEDS ORDERED: LORA0.5T PO (13:35)
[2018-12-31] MEDS ORDERED: AMIT10TA6 PO (13:36)
[2018-12-31] MEDS ORDERED: CALC500T91 PO (13:36)
[2018-12-31] MEDS ORDERED: TRAZ-150 PO (13:36)
[2018-12-31] MEDS ORDERED: ASPI-903 PO (13:36)
[2018-12-31 16:11] VITALS: BP 106/60; PULSE 65; RESP 18
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
--- NOTE | 2018-12-31 19:04 | ERD ---
ER Documentation Chief Complaint Chief Complaint ALOC unknown last well known time HPI Patient is a 58-year-old female with stroke and high cholesterol who presents confused. Please note the history and physical exam is limited secondary to the patient's recall of any events. The patient was brought in by ambulance. She came from an urgent care and was confused. She is awake alert and oriented x0 per paramedics. Blood sugar was 109. Her last known well time is unknown and there is no family here with her. ROS All systems reviewed and are negative except as per history of present illness. Medications Home Meds Reported Medications Calcium Carbonate ([id number]) 500 Mg Tablet, 500 MG PO BID, TAB 12/31/18 Amitriptyline Hcl* (Amitriptyline Hcl*) 10 Mg Tablet, 10 MG PO QHS, #30 TAB 12/31/18 Trazodone Hcl* (Desyrel*) 100 Mg Tab, 100 MG PO QHS, #30 TAB 12/31/18 Aspirin* (Aspirin* Chew) 81 Mg Tab.chew, 81 MG PO DAILY, TAB.CHEW 12/31/18 Atorvastatin* (Atorvastatin*) 40 Mg Tablet, 40 MG PO QHS, #30 TAB 12/31/18 Lorazepam* (Lorazepam*) 0.5 Mg Tablet, 0.5 MG PO DAILY PRN for ANXIETY, TAB 12/31/18 Discontinued Scripts Hydrocodone/Acetaminophen ([place] 5-325 Tablet) 1 Each Tablet, 1 EACH PO Q6H PRN for PAIN, #21 TAB Prov:JILLIAN ALEJANDRO M. 05/13/18 Calcium Carbonate/Vitamin D3 (OYSTER SHELL 500 MG + VIT D TB) 1 Each Tablet, 1 TAB PO BID for 30 Days, #60 TAB 2 Refills Prov:JAVONRAMSES MelloO M. 05/13/18 Aspirin (Aspirin) 81 Mg Chew, 81 MG PO DAILY for 30 Days, #30 TAB 2 Refills Prov:JILLIAN ALEJANDRO. 05/13/18 Ibuprofen* (Ibuprofen*) 800 Mg Tablet, 800 MG PO Q6H PRN for MODERATE PAIN LEVEL 4-6 for 10 Days, #30 TAB 2 Refills Prov:GLORIA EVANS MD 03/23/17 Acetaminophen (MAPAP) 325 Mg Tablet, 650 MG PO Q6H PRN for PAIN LEVEL 1-3 OR FEVER for 1 Day, TAB Prov:GLORIA EVANS MD 03/23/17 Allergies Allergies: Coded Allergies: No Known Allergy (Unverified , 03/20/17) PMhx/Soc History of Surgery: Yes Anesthesia Reaction: No Hx Neurological Disorder: Yes (POSSIBLE CVA?, SCIATICA) Hx Respiratory Disorders: No Hx Cardiac Disorders: No Hx Psychiatric Problems: No Hx Miscellaneous Medical Probl: Yes (See EMR for details. ) Hx Alcohol Use: No Hx Substance Use: No Hx Tobacco Use: No Smoking Status: Unknown if ever smoked FmHx Unable to obtain Physical Exam Vitals Vital Signs Date Temp Pulse Resp B/P (MAP) Pulse Ox O2 O2 Flow FiO2 Time Delivery Rate 12/31/18 65 18 106/60 98 Room Air 16:11 (75) 12/31/18 97.8 62 18 118/70 100 12:33 (86) Physical Exam Const: No acute distress Head: Atraumatic Eyes: Normal Conjunctiva ENT: Normal External Ears, Nose and Mouth. Neck: Full range of motion. No meningismus. Resp: Clear to auscultation bilaterally Cardio: Regular rate and rhythm, no murmurs Abd: Soft, non tender, non distended. Normal bowel sounds Skin: No petechiae or rashes Back: No midline or flank tenderness Ext: No cyanosis, or edema Neur: Awake but does not know her name, place, or year, equal building tech strength bilaterally, no slurred speech Psych: Depressed affect and tearful Result Diagram: 12/31/18 1238 12/31/18 1238 Results 24 hrs Laboratory Tests Test 12/31/18 12:34 12/31/18 12:38 Salicylates Level < 1.0 mg/dl Acetaminophen Level < 10.0 ug/ml Ethyl Alcohol Level < 10.0 mg/dl White Blood Count 7.2 10^3/ul Red Blood Count 4.43 10^6/ul Hemoglobin 12.3 g/dl Hematocrit 38.0 % Mean Corpuscular Volume 85.8 fl Mean Corpuscular Hemoglobin 27.8 pg Mean Corpuscular Hemoglobin Concent 32.4 g/dl Red Cell Distribution Width 12.8 % Platelet Count 182 10^3/UL Mean Platelet Volume 11.6 fl Immature Granulocytes % 0.400 % Neutrophils % 68.3 % Lymphocytes % 23.1 % Monocytes % 6.4 % Eosinophils % 1.2 % Basophils % 0.6 % Nucleated Red Blood Cells % 0.0 /100WBC Immature Granulocytes # 0.030 10^3/ul Neutrophils # 4.9 10^3/ul Lymphocytes # 1.7 10^3/ul Monocytes # 0.5 10^3/ul Eosinophils # 0.1 10^3/ul Basophils # 0.0 10^3/ul Nucleated Red Blood Cells # 0.0 10^3/ul Prothrombin Time 12.8 Sec Prothrombin Time Ratio 1.0 INR International Normalized Ratio 0.95 Activated Partial Thromboplast Time 28.6 Sec Sodium Level 139 mmol/L Potassium Level 4.1 mmol/L Chloride Level 104 mmol/L Carbon Dioxide Level 28 mmol/L Anion Gap 7 Blood Urea Nitrogen 16 mg/dl Creatinine 0.62 mg/dl Est Glomerular Filtrat Rate mL/min > 60 mL/min Glucose Level 100 mg/dl Hemoglobin A1c 5.3 % Calcium Level 9.8 mg/dl Troponin I < 0.012 ng/ml Triglycerides Level 52 mg/dl Cholesterol Level 117 mg/dl LDL Cholesterol, Calculated 54 mg/dl HDL Cholesterol 53 mg/dl Cholesterol/HDL Ratio 2.2 RATIO Current Medications Medications Dose Sig/Ericka Start Time Status Last (Trade) Ordered Route PRN Stop Time Admin Dose Reason Admin Aspirin 325 mg ONCE ONCE 12/31/18 DC 12/31/18 (Aspirin) PO 13:30 13:25 12/31/18 13:31 Olanzapine 5 mg ONCE ONCE 12/31/18 DC 12/31/18 (Zyprexa ODT 13:30 13:25 Zydis) 12/31/18 13:31 Procedures/MDM CT brain negative per radiology. Chest x-ray read by radiology. EKG read by me: Rate/Rhythm: Regular rate and rhythm at a normal rate Intervals: Normal Impression: No evidence of ischemia or arrhythmia Patient is a 58-year-old female who presents with transient global amnesia. The patient has no sign of bleed or mass on CT scan. Her daughter called and said that this is a usual presentation for her and that it is related to psychosis and depression. I had psychiatry doing evaluation and they did not feel she met criteria for a hold. Therefore the patient will be discharged back to her living facility. I doubt stroke, mass, or serious electrolyte criteria. Departure Diagnosis: Primary Impression: Psychosis Psychosis type: unspecified psychosis type Qualified Codes: F29 - Unspecified psychosis not due to a substance or known physiological condition Additional Impressions: Altered level of consciousness TGA (transient global amnesia) Condition: Fair Patient Instructions: Altered Loc Referrals: [facility] (PCP) Additional Instructions: Llame al doctor MAANA y jessica maryanne ROCK PARA DENTRO DE 1-2 HUSSEIN.Dgale a la secretaria que nosotros le instruimos hacer esta rock.Avise o llame si alan condicin se empeora antes de la rock. Regresa aqui si peor o no mejor. WENDY GAR MD Dec 31, 2018 19:04
== END 2018-12-31 17:56 | disposition home or self-care (01) ==
LOC: E/R 12:21
DX: F29 Unspecified psychosis not due to a substance or known physiological condition (principal); G45.4 Transient global amnesia; R40.2142 Coma scale, eyes open, spontaneous, at arrival to emergency department; R40.2242 Coma scale, best verbal response, confused conversation, at arrival to emergency department; R40.2362 Coma scale, best motor response, obeys commands, at arrival to emergency department; Z79.82 Long term (current) use of aspirin
CPT/HCPCS: 36415; 70450; 71045; 80048; 80061; 80307; 83036; 84484; 85025; 85610; 85730; 93005; Z7502; Z7610